=== PATIENT | female | born 1935 | race Caucasian/White ===

== ENCOUNTER 2017-06-17 07:20 | Emergency (ER) | payer OTHER ==
--- NOTE | 2017-06-17 07:39 | EDPHY ---
H & P Stated Complaint: back pain for one week, now radiating around to ribs Time Seen by Provider: 06/17/17 07:22 HPI/ROS: 81-year-old female presents complaining of mid back pain that radiates around to her bilateral ribs. She states this pain has been there for approximately 1 week and this morning she just felt achy all over and was concerned because despite acetaminophen and NSAIDs it had not improved. She has a history of hypertension for which she has recently been treated with lisinopril, she decided to stop the lisinopril because it had been causing cough and has not followed up to replace the lisinopril. She denies loss of bowel or bladder control. She denies numbness or tingling in her extremities. Review of systems As per HPI General no fever no chills no weakness HEENT no eye pain no eye discharge. No eye redness, no sore throat Respiratory no cough, no shortness of breath Cardiac no chest pain, no peripheral edema GI no abdominal pain, no diarrhea, no constipation, no nausea, no vomiting no flank pain, no hematuria, no dysuria Musculoskeletal no myalgias, no joint pain, positive back pain Heme no easy bruising, no easy bleeding Endo no polyuria, no polydipsia Skin no rashes, no pruritus Neuro no syncope, no dizziness, no headaches Psych is no suicidal ideation, no homicidal ideation Source: Patient, Family Exam Limitations: No limitations - Personal History Current Tetanus/Diphtheria Vaccine: Unsure Current Tetanus Diphtheria and Acellular Pertussis (TDAP): Unsure - Medical/Surgical History Hx Asthma: No Hx Chronic Respiratory Disease: No Hx Diabetes: No Hx Cardiac Disease: Yes Hx Renal Disease: No Hx Cirrhosis: No Hx Alcoholism: No Hx HIV/AIDS: No Hx Splenectomy or Spleen Trauma: No Other PMH: Hysterectomy. left tibial repair. sciatica - Family History Significant Family History: No pertinent family hx - Social History Smoking Status: Former smoker Alcohol Use: None Drug Use: None - Physical Exam Exam: 81 yo F alert and oriented in no acute distress, non toxic appearance hypertensive 190/130 HEENT atraumatic normocephalic, extraocular muscles intact, anicteric Oropharynx negative for erythema negative exudate, tolerating her own secretions Neck supple no meningismus Lungs clear to auscultation bilaterally Heart regular rate and rhythm without murmur rub or gallop Abdomen nondistended normoactive bowel sounds soft nontender, no palpable pulsatile mass good femoral pulses Back no CVA tenderness, no step-offs, no spinal tenderness pos scoliosis, no focal tenderness Extremities no cyanosis clubbing or edema Neuro alert and oriented, no focal deficits Constitutional: Initial Vital Signs Temperature (C) 36.6 C 06/17/17 07:30 Heart Rate 98 06/17/17 07:30 Respiratory Rate 20 06/17/17 07:30 Blood Pressure 191/129 H 06/17/17 07:30 O2 Sat (%) 92 06/17/17 07:30 O2 Delivery Mode Room Air O2 (L/minute) 2 Allergies/Adverse Reactions: acetaminophen [From Vicodin] Allergy (Verified 06/17/17 07:29) hydrocodone bitartrate [From Vicodin] Allergy (Verified 06/17/17 07:29) Home Medications: Medication Instructions Recorded NO HOME MEDS 08/05/09 AZITHROMYCIN [Z-PACK] 250 mg PO DAILY #6 tab 06/17/17 Ondansetron Odt [Zofran Odt 4 mg 4 mg PO Q4 PRN #10 tab 06/17/17 (*)] traMADol [Ultram 50 mg (*)] 50 mg PO Q8 PRN #15 tab 06/17/17 Medical Decision Making - Diagnostics Imaging Results: Imaging Impressions Chest X-Ray 06/17/17 07:45 Impression: 1. Stable severe compression of T8. Interval mild compression of T7. Suspect osteoporosis. This was confirmed on a DEXA scan in December 2013. Is this patient being treated? If there is concern that the T7 fracture is acute, then MRI could be performed to look for bone marrow edema, which if present, might make this patient a candidate for kyphoplasty. 2. Nasal or consolidation, pneumonia versus atelectasis 3. An element of chronic CHF cannot be excluded 4. Prominent superior mediastinum described above. Results called to Dr. Hope at 8:37 am. Abdomen CTA 06/17/17 08:26 Impression: Nothing acute identified. Normal abdominal aorta. Results discussed with Dr. Hope at 10:00 AM. Chest/Thorax CTA 06/17/17 08:31 Impression: 1. Normal thoracic aorta without dissection. 2. Cardiomegaly without CHF. 3. Progression of a T5 compression fracture. New T8 compression fracture since 2013. General information for patients regarding this examination can be found at [email or web address]. If you have questions or comments about this report, please contact me at (hospital) or [phone] (cell). ED Course/Re-evaluation: Patient seen and evaluated for mid back pain of approximately 1 weeks duration Upon arrival noted to be hypertensive 190/129 Patient was given labetalol 10 mg IV push with marked improvement in her blood pressure. EKG sinus rhythm with PVCs, no ST elevation, no ischemic changes IV was established, lab sent Urinalysis positive for nitrite and a small amount of bacteria, we will send a urine culture CBC normal, no evidence for infection, no left shift CMP, electrolytes within normal limits, no acidosis, normal creatinine Normal liver functions Lipase normal Troponin negative BNP Chest x-ray Patchy densities cannot rule out pneumonia Cardiomegaly Negative for consolidation negative for effusion Notable thoracic compression fractures, T7-T8, unknown age CT chest and abdomen to evaluate aorta Pending Upon return from CT scan after movement patient complaining back pain Given Morphine 2 mg IVP for pain, pt states that helped her in the past when she had broken leg. CTA chest and abdomen negative for dissection negative for AAA Chest with noted thoracic vertebral compression fracture at T8 appears new since 2013 however unknown age Impression 1)Thoracic vertebral compression fracture, unknown age 2) patchy densities on chest x-ray atelectasis versus possible early pneumonia Plan Tramadol Follow up with primary care physician as soon as possible Patient also given a Z-Kmiani to cover the possibility of an early pneumonia - Data Points Laboratory Results: Laboratory Results 06/17/17 07:54 06/17/17 07:54 06/17/17 06/17/17 06/17/17 07:54 07:54 07:45 WBC 6.50 10^3/uL 10^3/uL (3.80-9.50) RBC 4.91 10^6/uL 10^6/uL (4.18-5.33) Hgb 15.7 g/dL g/dL (12.6-16.3) Hct 48.1 % H % (38.0-47.0) MCV 98.0 fL fL (81.5-99.8) MCH 32.0 pg pg (27.9-34.1) MCHC 32.6 g/dL g/dL (32.4-36.7) RDW 12.8 % % (11.5-15.2) Plt Count 217 10^3/uL 10^3/uL (150-400) MPV 11.2 fL fL (8.7-11.7) Neut % (Auto) 68.2 % % (39.3-74.2) Lymph % (Auto) 16.9 % % (15.0-45.0) [place] % (Auto) 10.0 % % (4.5-13.0) Eos % (Auto) 3.8 % % (0.6-7.6) Baso % (Auto) 0.8 % % (0.3-1.7) Nucleat RBC Rel Count 0.0 % % (0.0-0.2) Absolute Neuts (auto) 4.43 10^3/uL 10^3/uL (1.70-6.50) Absolute Lymphs (auto) 1.10 10^3/uL 10^3/uL (1.00-3.00) Absolute Monos (auto) 0.65 10^3/uL 10^3/uL (0.30-0.80) Absolute Eos (auto) 0.25 10^3/uL 10^3/uL (0.03-0.40) Absolute Basos (auto) 0.05 10^3/uL 10^3/uL (0.02-0.10) Absolute Nucleated RBC 0.00 10^3/uL 10^3/uL (0-0.01) Immature Gran % 0.3 % % (0.0-1.1) Immature Gran # 0.02 10^3/uL 10^3/uL (0.00-0.10) Sodium 148 mEq/L H mEq/L (134-144) Potassium 3.7 mEq/L mEq/L (3.5-5.2) Chloride 103 mEq/L mEq/L (97-110) Carbon Dioxide 26 mEq/l mEq/l (22-31) Anion Gap 19 mEq/L H mEq/L (8-16) BUN 12 mg/dL mg/dL (7-23) Creatinine 0.7 mg/dL mg/dL (0.6-1.0) Estimated GFR > 60 Glucose 86 mg/dL mg/dL (70-100) Calcium 9.5 mg/dL mg/dL (8.5-10.4) Total Bilirubin 1.2 mg/dL mg/dL (0.1-1.4) AST 22 IU/L IU/L (14-46) ALT 24 IU/L IU/L (9-52) Alkaline Phosphatase 77 IU/L IU/L (38-126) Troponin I < 0.012 ng/mL ng/mL (0.000-0.034) NT-Pro-B Natriuret Pep 1310 pg/mL H pg/mL (0-450) Total Protein 7.1 g/dL g/dL (6.3-8.2) Albumin 4.1 g/dL g/dL (3.5-5.0) Lipase 74 IU/L IU/L (23-300) Urine Color Urine Appearance Urine pH Ur Specific [place] Urine Protein Urine Ketones Urine Blood Urine Nitrate Urine Bilirubin Urine Urobilinogen Ur Leukocyte Esterase Urine RBC Urine WBC Ur Epithelial Cells Urine Bacteria Urine Glucose 06/17/17 07:40 WBC RBC Hgb Hct MCV MCH MCHC RDW Plt Count MPV Neut % (Auto) Lymph % (Auto) [place] % (Auto) Eos % (Auto) Baso % (Auto) Nucleat RBC Rel Count Absolute Neuts (auto) Absolute Lymphs (auto) Absolute Monos (auto) Absolute Eos (auto) Absolute Basos (auto) Absolute Nucleated RBC Immature Gran % Immature Gran # Sodium Potassium Chloride Carbon Dioxide Anion Gap BUN Creatinine Estimated GFR Glucose Calcium Total Bilirubin AST ALT Alkaline Phosphatase Troponin I NT-Pro-B Natriuret Pep Total Protein Albumin Lipase Urine Color YELLOW Urine Appearance CLEAR Urine pH 6.0 (5.0-7.5) Ur Specific [place] <= 1.005 (1.002-1.030) Urine Protein NEGATIVE (NEGATIVE) Urine Ketones NEGATIVE (NEGATIVE) Urine Blood NEGATIVE (NEGATIVE) Urine Nitrate POSITIVE H (NEGATIVE) Urine Bilirubin NEGATIVE (NEGATIVE) Urine Urobilinogen 0.2 EU EU (0.2-1.0) Ur Leukocyte Esterase NEGATIVE (NEGATIVE) Urine RBC 1-3 /hpf /hpf (0-3) Urine WBC 1-3 /hpf /hpf (0-3) Ur Epithelial Cells 2+ /lpf H /lpf (NONE-1+) Urine Bacteria 2+ /hpf H /hpf (NONE SEEN) Urine Glucose NEGATIVE (NEGATIVE) Medications Given: Discontinued Medications Labetalol HCl (Trandate Injection) 10 mg IVP ONCE ONE Stop: 06/17/17 07:43 Last Admin: 06/17/17 07:58 Dose: 10 mg Morphine Sulfate (Morphine) 2 mg IVP EDNOW ONE Stop: 06/17/17 09:28 Last Admin: 06/17/17 09:29 Dose: 2 mg Departure - Departure Disposition: Home, Routine, Self-Care Clinical Impression: Thoracic compression fracture Condition: Good Instructions: Vertebral Compression Fracture (ED) Referrals: Gilson Rodriguez MD [Primary Care Provider] - As per Instructions Prescriptions: AZITHROMYCIN [Z-PACK] 250 mg PO DAILY #6 tab Ondansetron Odt [Zofran Odt 4 mg (*)] 4 mg PO Q4 PRN #10 tab PRN Reason: Nausea/Vomiting, Use 1st traMADol [Ultram 50 mg (*)] 50 mg PO Q8 PRN #15 tab PRN Reason: Pain, Moderate
[2017-06-17] MEDS ORDERED: LABETALOL HCL 5 MG/ML 20 ML MDV IVP ONE (07:42)
--- NOTE | 2017-06-17 07:54 | CPEKG ---
Heart Rate: 74 RR Interval: 811 P-R Interval: 164 QRSD Interval: 76 QT Interval: 400 QTC Interval: 444 P Desdemona: 67 QRS Desdemona: 22 T Wave Desdemona: 59 EKG Severity - ABNORMAL ECG - EKG Impression: SINUS RHYTHM EKG Impression: VENTRICULAR BIGEMINY Electronically Signed By: Maged Beard 19-Jun-2017 17:49:36
[2017-06-17 08:03] VITALS: TEMP 98.1
[2017-06-17 08:03] LABS: % IMMATURE GRANULYOCYTES 0.3 % (0.0-1.1); ABSOLUTE IMMATURE GRANULOCYTES 0.02 10^3/uL (0.00-0.10); ADD DIFF? NO; ADD MORPH? NO; ADD SCAN? NO; ATYPICAL LYMPHOCYTE FLAG 0 (0-99); FRAGMENT RBC FLAG 0 (0-99); HEMATOCRIT 48.1 % (38.0-47.0); HEMOGLOBIN 15.7 g/dL (12.6-16.3); LEFT SHIFT FLG 0 (0-99); LIPEMIA HEMOLYSIS FLAG 80 (0-99); MEAN CELL HEMOGLOBIN CONCENTR. 32.6 g/dL (32.4-36.7); MEAN PLATELET VOLUME 11.2 fL (8.7-11.7); PLATELET CLUMPS FLAG 0 (0-99); PLATELET COUNT 217 10^3/uL (150-400); RED BLOOD CELL COUNT 4.91 10^6/uL (4.18-5.33); RED CELL DISTRIBUTION WIDTH 12.8 % (11.5-15.2)
[2017-06-17 08:09] LABS: COLOR YELLOW; LEUKOCYTE ESTERASE,URINE NEGATIVE (NEGATIVE); NITRITE,URINE POSITIVE (NEGATIVE)
[2017-06-17 08:18] LABS: BACTERIA 2+ /hpf (NONE SEEN)
[2017-06-17 08:19] LABS: ALANINE AMINOTRANSFERASE 24 IU/L (9-52); ALBUMIN 4.1 g/dL (3.5-5.0); ALKALINE PHOSPHATASE 77 IU/L (38-126); ANION GAP 19 mEq/L (8-16); ASPARTATE AMINOTRANSFERASE 22 IU/L (14-46); BILIRUBIN,TOTAL 1.2 mg/dL (0.1-1.4); CALCIUM 9.5 mg/dL (8.5-10.4); CARBON DIOXIDE 26 mEq/l (22-31); CHLORIDE 103 mEq/L (97-110); CREATININE 0.7 mg/dL (0.6-1.0); GLOMERULAR FILTRATION RATE > 60; GLUCOSE 86 mg/dL (70-100); POTASSIUM 3.7 mEq/L (3.5-5.2); SODIUM 148 mEq/L (134-144); TOTAL PROTEIN 7.1 g/dL (6.3-8.2)
[2017-06-17 08:28] LABS: TROPONIN I < 0.012 ng/mL (0.000-0.034)
[2017-06-17] MEDS ORDERED: IOPAMIDOL (ISOVUE-370) 150 ML BTL IV ONE (08:48)
[2017-06-17 10:36] VITALS: BP 149/67; PULSE 85; RESP 19; O2SAT 90
== END 2017-06-17 10:44 | disposition home or self-care (01) ==
LOC: CED 07:20
DX: M48.54XA Collapsed vertebra, not elsewhere classified, thoracic region, initial encounter for fracture (principal); Z87.891 Personal history of nicotine dependence
CPT/HCPCS: 71020; 71275; 74175; 93005; 96374; 96375; 99285; J3490; Q9967; 80053-PO; 81003-PO; 81015-PO; 83690-PO; 83880-PO; 84484-PO; 85025-PO